=== PATIENT | male | born 1945 | race Caucasian/White ===

== ENCOUNTER 2017-11-26 18:28 | Emergency (ER) | payer MEDICARE ==
[2017-11-26 18:56] LABS: BASOPHILS # (AUTO) 0.1 10^3/uL (0.0-0.1); BASOPHILS % (AUTO) 0.6 %; EOSINOPHILS # (AUTO) 0.1 10^3/uL (0.0-0.7); EOSINOPHILS % (AUTO) 0.8 %; HGB - HEMOGLOBIN 15.7 g/dL (14.0-18.0); LYMPHOCYTES # (AUTO) 1.3 10^3/uL (1.5-3.5); LYMPHOCYTES % (AUTO) 9.8 %; MEAN CORPUSCULAR HGB CONC 33.2 g/dL (32.0-36.0); MEAN CORPUSCULAR VOLUME 90.3 fL (80.0-94.0); MEAN PLATELET VOLUME 7.8 fL (7.4-11.4); MONOCYTES # (AUTO) 0.9 10^3/uL (0.0-1.0); MONOCYTES % (AUTO) 6.5 %; NEUTROPHILS # (AUTO) 11.3 10^3/uL (1.5-6.6); NEUTROPHILS % (AUTO) 82.3 %; PLT - PLATELET COUNT 269 10^3/uL (130-450); RED BLOOD COUNT 5.23 10^6/uL (4.70-6.10); RED CELL DISTRIBUTION WIDTH 14.3 % (12.0-15.0); WHITE BLOOD COUNT 13.7 x10^3/uL (4.8-10.8)
[2017-11-26 19:10] LABS: ALBUMIN/GLOBULIN RATIO 1.4 (1.0-2.2); BILIRUBIN,TOTAL 1.2 mg/dL (0.2-1.0); CALCIUM 9.3 mg/dL (8.5-10.3); CREATININE 1.6 mg/dL (0.6-1.2); TOTAL PROTEIN 6.9 g/dL (6.7-8.2)
--- NOTE | 2017-11-26 19:15 | XRAY Report ---
Procedure Date: 11/26/2017 Accession Number: [id number] / [id number] Procedure: XR - Chest 2 View X-Ray CPT Code: 74055 FULL RESULT: EXAM: CHEST RADIOGRAPHY. EXAM DATE: 11/26/2017 07:03 PM. CLINICAL HISTORY: Epigastric pain. COMPARISON: 12/31/2011. TECHNIQUE: 2 views. FINDINGS: Lungs/Pleura: No focal opacities evident. No pleural effusion. No pneumothorax. Normal volumes. Mediastinum: Heart and mediastinal contours are unremarkable. Other: None. IMPRESSION: Normal 2-view chest radiography. [facility]
[2017-11-26] MEDS ORDERED: SODIUM CHLORIDE 0.9% 1,000 ML IV ONE (19:44)
[2017-11-26] MEDS ORDERED: MORPHINE 2 MG/ML SYRINGE IVP STA (19:44)
--- NOTE | 2017-11-26 19:46 | ED Physician Documentation ---
PD HPI ABD PAIN - Stated complaint Stated Complaint: UPPER ABD PX - Chief complaint Chief Complaint: Abd Pain - History obtained from History obtained from: Patient, Family (SO) - History of Present Illness Timing - onset: Today (This is a 72-year-old gentleman who had a gallbladder attack a couple of years ago. He has not had one since. Today at 230 after eating chicken he developed epigastric pain that is nonradiating and moderate but progressive and constant. He has never had this since his gallbladder attack but does feel like his old gallbladder attack.) Review of Systems Ten Systems: 10 systems reviewed and negative Constitutional: denies: Fever, Chills Cardiac: denies: Chest pain / pressure, Palpitations Respiratory: denies: Dyspnea, Cough PD PAST MEDICAL HISTORY - Past Medical History Past Medical History: Yes Cardiovascular: High cholesterol GI: Cholelithiasis : Other Other Past Medical History: donated 1 kidney - Past Surgical History Past Surgical History: Yes - Present Medications Home Medications: Ambulatory Orders Medication Instructions Recorded Confirmed Aspirin 81 mg PO 11/26/17 HYDROcod/ACETAM 5/325 [[place] 5/325] 1 - 2 ea PO Q6H PRN #10 tablet 11/26/17 Simvastatin 20 mg PO 11/26/17 - Allergies Allergies/Adverse Reactions: Allergies Allergy/AdvReac Type Severity Reaction Status Date / Time No Known Drug Allergies Allergy Verified 11/26/17 18:34 - Social History Does the pt smoke?: No Smoking Status: Never smoker Does the pt drink ETOH?: No Does the pt have substance abuse?: No - Family History Family history: reports: Non contributory - Immunizations Immunizations are current?: Yes PD ED PE NORMAL - Vitals Vital signs reviewed: Yes - General General: Alert and oriented X 3, No acute distress - HEENT HEENT: PERRL, EOMI - Neck Neck: Supple, no meningeal sign, No bony TTP - Cardiac Cardiac: RRR, No murmur - Respiratory Respiratory: No respiratory distress, Clear bilaterally - Abdomen Abdomen: Soft, Other (Mild epigastric and right upper quadrant tenderness without Calderon sign.) - Back Back: No CVA TTP, No spinal TTP - Derm Derm: Normal color, Warm and dry - Extremities Extremities: No edema, No calf tenderness / cord - Neuro Neuro: Alert and oriented X 3, Normal speech - Psych Psych: Normal mood, Normal affect Results - Vitals Vitals: Vital Signs - 24 hr 11/26/17 11/26/17 11/26/17 18:30 19:37 22:20 Temperature 36.6 C Heart Rate 43 L 45 L 48 L Respiratory 16 14 20 Rate Blood Pressure 99/64 109/54 L 116/92 H O2 Saturation 99 95 97 Oxygen O2 Source Room air - EKG (time done) 1845 Rate: Rate (enter#) (56) Rhythm: NSR [place]: Normal Intervals: Normal [place] QRS: Normal Ischemia: Normal ST segments Computer interpretation: Agree with computer - Labs Labs: Laboratory Tests 11/26/17 11/26/17 11/26/17 18:42 18:42 18:42 WBC 13.7 H RBC 5.23 Hgb 15.7 Hct 47.3 MCV 90.3 MCH 30.0 MCHC 33.2 RDW 14.3 Plt Count 269 MPV 7.8 Neut # (Auto) 11.3 H Lymph # (Auto) 1.3 L [place] # (Auto) 0.9 Eos # (Auto) 0.1 Baso # (Auto) 0.1 Absolute Nucleated RBC 0.00 Nucleated RBC % 0.0 Sodium 141 Potassium 5.4 H Chloride 108 Carbon Dioxide 25 Anion Gap 8.0 BUN 21 H Creatinine 1.6 H Estimated GFR (MDRD) 43 L Glucose 127 H Calcium 9.3 Total Bilirubin 1.2 H AST 50 H ALT 38 Alkaline Phosphatase 62 Troponin I < 0.04 Total Protein 6.9 Albumin 4.0 Globulin 2.9 Albumin/Globulin Ratio 1.4 Lipase 33 - Rads (name of study) RUQ sono Radiology: EMP read contemporaneously (Gallstones without other evidence of cholecystitis) PD MEDICAL DECISION MAKING - ED course ED course: 72-year-old gentleman with what sounds like a recurrent biliary colic attack. He was basically nontender on exam and comfortable after just 2 mg of morphine. He has very modest elevation of his white count, bilirubin, and AST but no overt evidence of cholecystitis on his ultrasound. He required no further pain medication and outpatient surgical referral was advised. - Sepsis Event Vital Signs: Vital Signs - 24 hr 11/26/17 11/26/17 11/26/17 18:30 19:37 22:20 Temperature 36.6 C Heart Rate 43 L 45 L 48 L Respiratory 16 14 20 Rate Blood Pressure 99/64 109/54 L 116/92 H O2 Saturation 99 95 97 Oxygen O2 Source Room air Departure - Departure Disposition: Home, Self Care Clinical Impression: Biliary colic Condition: Good Record reviewed to determine appropriate education?: Yes Instructions: ED Gallstone W Biliary Colic Follow-Up: Curry Kennedy MD [Provider Admit Priv/Credential] - Within 1 week Prescriptions: HYDROcod/ACETAM 5/325 [[place] 5/325] 1 - 2 ea PO Q6H PRN #10 tablet PRN Reason: Pain Comments: Call your doctor to arrange a follow-up appointment, make the next available appointment. In the interim, return anytime if worse or if new symptoms develop.
[2017-11-26 22:22] VITALS: BP 116/92
--- NOTE | 2017-11-26 22:22 | Ultrasound Report ---
Procedure Date: 11/26/2017 Accession Number: [id number] / [id number] Procedure: US - Abdomen Limited CPT Code: FULL RESULT: EXAM: ABDOMEN ULTRASOUND LIMITED, RUQ EXAM DATE: 11/26/2017 10:04 PM. CLINICAL HISTORY: RUQ pain. COMPARISON: CHEST 2 VIEW 11/26/2017. TECHNIQUE: Real-time scanning was performed with static images obtained. FINDINGS: Liver: Submitted images of liver demonstrate no focal lesions. Main portal vein flow: Hepatopetal. Gallbladder: The gallbladder is distended. There is cholelithiasis. No evidence of gallbladder wall thickening. Negative sonographic Calderon sign. Biliary System: CBD measures 7 mm. No evidence of intrahepatic bile duct dilatation. Other: The right kidney demonstrates no hydronephrosis. IMPRESSION: 1. There is cholelithiasis. No evidence of gallbladder wall thickening or sonographic Calderon sign for sonographic diagnosis of acute cholecystitis. 2. High normal common bile duct diameter. No evidence of intrahepatic bile duct dilatation. [facility]
[2017-11-26] MEDS ORDERED: HYDROcod/ACET 5/325 Prepack 4 PO STA (22:42)
== END 2017-11-26 23:10 | disposition home or self-care (01) ==
LOC: ED 18:28
DX: K80.50 Calculus of bile duct without cholangitis or cholecystitis without obstruction (principal)
CPT/HCPCS: 36415; 71046; 76705; 80053; 83690; 84484; 85025; 93005; 96361; 96374; 99284; J2270

== ENCOUNTER 2019-01-22 13:01 | Outpatient (CLI) | payer MEDICARE ==
--- NOTE | 2019-01-22 14:00 | XRAY Report ---
Reason: PAIN IN LEFT ELBOW Procedure Date: 01/22/2019 Accession Number: [id number] / [id number] Procedure: XRS - Elbow 3 View LT CPT Code: FULL RESULT: EXAM: LEFT ELBOW RADIOGRAPHY EXAM DATE: 01/22/2019 01:19 PM. CLINICAL HISTORY: PAIN IN LEFT ELBOW. COMPARISON: None. TECHNIQUE: 3 views. FINDINGS: Bones: Normal. No fractures or bone lesions. Joints: Normal. No effusion. No subluxation. Soft Tissues: Normal. No soft tissue swelling. IMPRESSION: Normal elbow radiography. [facility]
== END 2019-01-22 13:02 | disposition home or self-care (01) ==
LOC: DI.S 13:01
PROVIDERS: ATTEND Nurse Practitioner Family
DX: M25.522 Pain in left elbow (principal)

== ENCOUNTER 2020-10-26 14:44 | Outpatient (CLI) | payer MEDICARE, BC ==
--- NOTE | 2020-10-26 14:21 | XRAY Report ---
PROCEDURE: Lumbar Spine 2 View INDICATIONS: LOW BACK PAIN TECHNIQUE: 2 views of the lumbar spine were acquired. COMPARISON: None. FINDINGS: Bones: 5 [id number] vertebrae are present. There is normal bony alignment. No vertebral body compression fractures. No suspicious bony lesions. Mild degenerative endplate changes are seen at m ultiple levels throughout the lumbar spine. Facet hypertrophy is seen extending from the L2-3 through L5-S1 levels. Soft tissues: Overlying bowel gas pattern is normal. Surgical clips are seen projecting over the lef t upper quadrant and left pelvis. Aortic at this chronic ossifications are seen. The pattern of calci fication suggests a possible small infrarenal abdominal aortic aneurysm measuring up to 3.3 cm on lat eral view. IMPRESSION: 1. No acute osseous abnormality. Multilevel spondylosis. If symptoms persist, further evaluation may be obtained with lumbar spine MRI. 2. Aortic atherosclerotic calcifications with possible infrarenal abdominal aortic aneurysm measurin g up to 3.3 cm in diameter. Recommend aortic ultrasound for confirmation. Reviewed by: Wenceslao Izquierdo MD on 10/26/2020 2:20 PM PDT Approved by: Wenceslao Izquierdo MD on 10/26/2020 2:20 PM PDT Station ID: [id number]
== END 2020-10-26 14:45 | disposition home or self-care (01) ==
LOC: DI.S 14:44
PROVIDERS: ATTEND Nurse Practitioner Family
DX: M47.817 Spondylosis without myelopathy or radiculopathy, lumbosacral region (principal); M47.816 Spondylosis without myelopathy or radiculopathy, lumbar region; M51.36 Other intervertebral disc degeneration, lumbar region; M51.37 Other intervertebral disc degeneration, lumbosacral region; I70.0 Atherosclerosis of aorta

== ENCOUNTER 2020-11-06 06:44 | Outpatient (CLI) | payer MEDICARE, BC ==
--- NOTE | 2020-11-06 10:57 | Ultrasound Report ---
PROCEDURE: Aorta Screening INDICATIONS: ABN FINDINGS ON XRAY TECHNIQUE: Real time scanning was performed of the aorta and iliac arteries, with image documentatio n. COMPARISON: Chest x-ray 11/26/2017 FINDINGS: Aorta: Proximal aorta is not well seen. Mid-aorta measures 2.0 x 2.3 cm. Distal aortic diameter is 3.0 x 3.2 cm. Iliac arteries: Right common iliac artery measures 1.2 x 1.4 cm. Left common iliac artery measures 1.4 x 1.3 cm. IMPRESSION: No aneurysmal dilation, noting proximal aorta is not well seen. Reviewed by: Jessenia Cruz MD on 11/06/2020 10:55 AM PDT Approved by: Jessenia Cruz MD on 11/06/2020 10:55 AM PDT Station ID: [id number]
== END 2020-11-06 06:45 | disposition home or self-care (01) ==
LOC: DI 06:44
PROVIDERS: ATTEND Physician Assistant
DX: R93.89 Abnormal findings on diagnostic imaging of other specified body structures (principal)